=== PATIENT | female | born 1930 | race Hispanic/Latino ===

== ENCOUNTER 2018-09-06 15:57 | Outpatient (CLI) | payer BC, MEDICARE | END 2018-09-06 15:58 | disposition home or self-care (01) | LOC: RAD 15:57 ==

== ENCOUNTER 2018-09-08 09:52 | Outpatient (CLI) | payer BC, MEDICARE | END 2018-09-08 09:53 | disposition home or self-care (01) | LOC: RAD 09:52 ==

== ENCOUNTER 2018-10-07 18:40 | Inpatient (IN) | payer BC, MEDICARE ==
[2018-10-07] MEDS ORDERED: Morphine 4 mg/ml ISec IVP STA ×2 (19:51→23:41)
--- NOTE | 2018-10-07 20:21 | ED PDOC ---
Arrival/HPI - General Chief Complaint: Weakness/Neurological Deficit Time Seen by Provider: 10/07/18 19:36 Historian: Patient - History of Present Illness Narrative History of Present Illness (Text): 10/07/18 20:19 Dorothy Sharp is an 88 year old female, whose past medical history includes breast cancer, diabetes, spinal stenosis, and vertebral disc disease, who presents to the Emergency department complaining of right-sided leg pain extending from her right buttock down the right side of her leg. Patient states she is under the care of a pain specialist for this and recently had an epidural performed. Patient states she ran out of her Oxycodone, which only helped minimally. Patient states " I live alone, I can not go home, I can't walk because of the pain." Patient also complaining of bilateral leg swelling, which she states is chronic. Patient states she had dopplers of the lower extremities performed, which were negative. Patient denies any leg weakness, changes in bowel/urinary habits, fever, chills, chest pain, headache, dizziness, or any other complaints. Symptom Onset: Gradual Symptom Course: Unchanged Activities at Onset: Light Context: Home Past Medical History - Provider Review Nursing Documentation Reviewed: Yes - Infectious Disease Hx of Infectious Diseases: None - Tetanus Immunization Tetanus Immunization: Unknown - Cardiac Hx Pacemaker: No - Pulmonary Hx Chronic Obstructive Pulmonary Disease (COPD): Yes - Neurological Hx Paralysis: No - Endocrine/Metabolic Hx Endocrine Disorders: Yes Hx Diabetes Mellitus Type 1: Yes - Hematological/Oncological Hx Blood Transfusions: No - Musculoskeletal/Rheumatological Hx Musculoskeletal Disorders: Yes - Psychiatric Hx Emotional Abuse: No Hx Physical Abuse: No Hx Substance Use: No - Surgical History Hx Cholecystectomy: Yes Hx Mastectomy: Yes (partial) - Anesthesia Hx Anesthesia Reactions: No Hx Malignant Hyperthermia: No - Suicidal Assessment Feels Threatened In Home Enviroment: No Family/Social History - Physician Review Nursing Documentation Reviewed: Yes Family/Social History: Unknown Family HX Smoking Status: Never Smoked Hx Alcohol Use: No Hx Substance Use: No Hx Substance Use Treatment: No Allergies/Home Meds Allergies/Adverse Reactions: Allergies regadenoson Adverse Reaction (Intermediate, Verified 06/17/17 12:02) SHORTNESS OF BREATH DURING STRESS TEST/IMPROVED WITH AMINOPHYLINE Home Medications: Home Meds Medication Instructions Recorded Confirmed Arformoterol Tartrate [Brovana] 1 inh INH BID PRN 05/29/13 10/07/18 Acetaminophen [Tylenol (Renal)] 650 mg PO Q6 PRN 06/09/17 10/07/18 Wilbur-3 Fatty Acids/Fish Oil [Fish 2 cap PO DAILY 06/09/17 10/07/18 Oil 1,000 mg Capsule] metFORMIN [glucOPHAGE] 500 mg PO BID 06/09/17 10/07/18 traMADol [Ultram] 50 mg PO TID PRN 06/09/17 10/07/18 Rosuvastatin Calcium [Crestor] 5 mg PO DAILY 06/17/17 10/07/18 Acetaminophen [Tylenol 325mg tab] 650 mg PO Q4H PRN 07/21/18 10/07/18 Glimepiride [Amaryl] 1 mg PO DAILY 07/21/18 10/07/18 Tiotropium [place] Inhaler 1 inhaler INH DAILY PRN 07/21/18 10/07/18 [Spiriva Inhalation Handihaler Device] oxyCODONE [oxyCODONE Immediate 5 mg PO DAILY 10/07/18 10/07/18 Release Tab] Review of Systems - Physician Review All systems were reviewed & negative as marked: Yes - Review of Systems Constitutional: Normal. absent: Fevers Eyes: Normal ENT: Normal Respiratory: Normal. absent: SOB Cardiovascular: Normal. absent: Chest Pain, Calf Pain Gastrointestinal: Normal. absent: Abdominal Pain, Diarrhea, Nausea, Vomiting Genitourinary Female: Normal. absent: Dysuria, Frequency, Hematuria, Urine Output Changes Musculoskeletal: Back Pain, Myalgias, Other (+bilateral lower extremity swelling) Skin: Normal. absent: Rash Neurological: Normal. absent: Headache, Dizziness Endocrine: Normal Hemo/Lymphatic: Normal Psychiatric: Normal Physical Exam Vital Signs Reviewed: Yes Vital Signs Temp Pulse Resp BP Pulse Ox 10/07/18 18:54 98.2 F 94 H 16 138/71 97 Temperature: Afebrile Blood Pressure: Normal Pulse: Regular Respiratory Rate: Normal Appearance: Positive for: Well-Appearing, Non-Toxic, Comfortable Pain Distress: None Mental Status: Positive for: Alert and Oriented X 3 Finger Stick Blood Glucose: 93 - Systems Exam Head: Present: Atraumatic, Normocephalic Pupils: Present: PERRL Extroacular Muscles: Present: EOMI Conjunctiva: Present: Normal Mouth: Present: Moist Mucous Membranes Neck: Present: Normal Range of Motion. No: Meningeal Signs, Paraspinal Tenderness Respiratory/Chest: Present: Clear to Auscultation, Good Air Exchange. No: Respiratory Distress, Accessory Muscle Use Cardiovascular: Present: Regular Rate and Rhythm, Normal S1, S2. No: Murmurs Abdomen: No: Tenderness, Distention, Peritoneal Signs Back: Present: Pain with Leg Raise (Discomfort with bilateral straight leg raising) Upper Extremity: Present: Normal Inspection. No: Cyanosis, Edema Lower Extremity: Present: Edema (2+ pitting edema bilaterally), NORMAL PULSES, Normal ROM, Neurovascularly Intact, Capillary Refill < 2 s, Other (DTRs intact). No: CALF TENDERNESS, Cyanosis, Jefferson's Sign, Erythema, Deformity, Temperature Abnormalties Neurological: Present: GCS=15, CN II-XII Intact, Speech Normal, Motor Func Grossly Intact (Full ROM x4 extremities), Normal Sensory Function, Normal Cerebellar Funct, Norm Deep Tendon Reflexes (DTRs intact), Memory Normal Skin: Present: Warm, Dry, Normal Color. No: Rashes Psychiatric: Present: Alert, Oriented x 3, Normal Insight, Normal Concentration Medical Decision Making ED Course and Treatment: 10/07/18 20:19 Impression: 88 year old female complaining of right-sided leg pain radiating down leg and bilateral lower extremity swelling. Plan: -- US Duplex Lower Extremities -- EKG -- Chest X-ray -- Labs, BNP -- Morphine -- Reassess and disposition Prior Visits: Notes and results from previous visits were reviewed. Progress Notes: Reviewed EKG, NSR at 83 bpm. Inferior infarct. No acute changes. 10/07/18 23:08 US Duplex Lower Extremities preliminary read negative for DVT. 10/07/18 23:34 Chest X-ray reviewed, shows no acute processes. 10/07/18 23:[address] Vasques, who is aware and agrees with plan. Accepts pt in to her service. Pt will go [facility] observation for sciatica and intractable pain. Requests Dr. Bowers, pain specialist, on consult. - Lab Interpretations I have reviewed the lab results: Yes - RAD Interpretation Radiology Orders: 10/07/18 19:51 CHEST PORTABLE [RAD] Stat 10/07/18 20:03 DUPLEX LOWER EXTRM VEIN BILAT [US] Stat Tow Truck Driver: ED Physician - EKG Interpretation Interpreted by ED Physician: Yes Type: 12 lead EKG - Medication Orders Current Medication Orders: Discontinued Medications Morphine Sulfate (Morphine) 4 mg IVP STAT STA Stop: 10/07/18 19:52 Last Admin: 10/07/18 20:16 Dose: 4 mg MAR Pain Assessment Document 10/07/18 20:16 KV (Rec: 10/07/18 20:16 KV [id number]) Pain Reassessment Is this a pain reassessment? No IVP Administration Document 10/07/18 20:16 KV (Rec: 10/07/18 20:16 KV [id number]) Charges for Administration # of IVP Administrations 1 - Scribe Statement The provider has reviewed the documentation as recorded by the Reji Jansen Provider Scribe Attestation: All medical record entries made by the Scribe were at my direction and persona lly dictated by me. I have reviewed the chart and agree that the record accurately reflects my personal performance of the history, physical exam, medical decision making, and the department course for this patient. I have also personally directed, reviewed, and agree with the discharge instructions and disposition. Disposition/Present on Arrival - Present on Arrival Any Indicators Present on Arrival: No History of DVT/PE: No History of Uncontrolled Diabetes: No Urinary Catheter: No History of Decub. Ulcer: No History Surgical Site Infection Following: None - Disposition Have Diagnosis and Disposition been Completed?: Yes Diagnosis: Sciatica, Intractable pain, Leg edema Disposition: HOSPITALIZED Disposition Time: 23:49 Patient Plan: Observation Patient Problems: Current Active Problems Problem Status Onset Intractable pain Acute Leg edema Acute Sciatica Acute Condition: STABLE Referrals: Tam Vasques MD [Primary Care Provider] - Follow up with primary Forms: [employer] ([place])
[2018-10-07 20:24] LABS: ALB/GLOB RATIO 1.2 (1.1-1.8); ALBUMIN 4.4 g/dL (3.0-4.8); ALT/SGPT 29 U/L (7-56); AST/SGOT 37 U/L (14-36); BLOOD UREA NITROGEN 19 mg/dL (7-21); CALCIUM 9.7 mg/dL (8.4-10.5); GFR NON-AFRICAN AMERICAN 59
[2018-10-07 20:30] LABS: MEAN CELL VOLUME 90.7 fl (80.0-105.0); MEAN CORPUSCULAR HEMOGLOBIN 30.3 pg (25.0-35.0); MEAN CORPUSCULAR HGB CONC 33.4 g/dl (31.0-37.0); MEAN PLATELET VOLUME 9.2 fl (7.0-11.0); RBC 4.29 10^6/uL (3.5-6.1); RED CELL DISTRIBUTION WIDTH 14.8 % (11.5-14.5); WHITE BLOOD COUNT 9.3 10^3/uL (4.5-11.0)
[2018-10-07 20:33] LABS: B-TYPE NATRIURETIC PEPTIDE 173 pg/mL (0-450)
[2018-10-08] MEDS: Morphine 4 mg/ml ISec IVP PRN ×2 (03:28→11:24)
--- NOTE | 2018-10-08 09:34 | RAD ---
HISTORY: medical clearance COMPARISON: Chest x-ray performed 09/06/18 TECHNIQUE: Chest, one view. FINDINGS: LUNGS: Mild left basilar atelectasis. Please note that chest x-ray has limited sensitivity for the detection of pulmonary masses. PLEURA: No significant pleural effusion identified. No definite pneumothorax . CARDIOVASCULAR: Borderline cardiomegaly. Atherosclerotic calcifications of an ectatic aorta. OSSEOUS STRUCTURES: Degenerative changes of the spine. VISUALIZED UPPER ABDOMEN: Unremarkable. OTHER FINDINGS: Left axillary clips. Postsurgical changes left breast. IMPRESSION: Mild left basilar atelectasis. Borderline cardiomegaly. Postoperative changes within the left axilla and left breast.
[2018-10-08] MEDS ORDERED: Tiotropium 18 mcg Cap For Inhalation INH PRN (09:54)
[2018-10-08] MEDS ORDERED: oxyCODONE 5 mg Immediate Release Tab PO SCH (10:00)
[2018-10-08] MEDS: Tiotropium 18 mcg Cap For Inhalation INH SCH (12:00)
[2018-10-08] MEDS: MethylPREDNISolone 40 mg Vial IV SCH ×2 (12:03→21:33)
[2018-10-08] MEDS: oxyCODONE 5 mg Immediate Release Tab PO PRN ×2 (16:46→22:40)
[2018-10-08] MEDS: Arformoterol 15 mcg/2 ml Inh Sol IH SCH (20:15)
--- NOTE | 2018-10-08 21:12 | HP ---
DATE OF EXAM: 10/08/2018 HISTORY OF PRESENT ILLNESS: The patient is 88 years old who states that she was having chronic back pain. She was following with pain management doctor, who gave her an epidural on 09/22/2018. The following day, she had an intractable pain in her right leg, she was unable to walk. She called him back and he put her back on Celebrex and oxycodone. She states she has been holding onto the pain, but yesterday pain got so worse she could not even stand up or walk to the bathroom, she got nervous because of right leg weakness, so she called ambulance and she was brought to emergency room for further evaluation. PAST MEDICAL HISTORY: The patient has past medical history significant for; 1. Hypertension. 2. Hyperlipidemia. 3. History of COPD. 4. She had stress test done and had a cardiac catheterization done. 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 5. History of CA breast, status post lumpectomy. 6. Status post cholecystectomy. 7. Non-insulin dependent diabetes. ALLERGIES SHE IS ALLERGIC TO REGADENOSON. HOME MEDICATIONS: She is on tramadol, oxycodone, metformin, Spiriva, Crestor, glimepiride, Colace, aspirin 81 daily, Brovana. SOCIAL HISTORY: She used to be a heavy smoker in the past. Socially used to drink. PHYSICAL EXAMINATION GENERAL: She is anxious, awake, alert, oriented, able to communicate. VITAL SIGNS: She is afebrile, pulse 74, respiration 18, blood pressure 124/65. CARDIOPULMONARY: Heart is S1, S2 audible. LUNGS: Bilateral diffusely decreased breath sounds. No active rhonchi or crackle. ABDOMEN: Soft, obese, nontender. No rebound. No guarding. NEUROLOGIC: She is awake, alert, oriented, able to communicate. LABORATORY DATA: WBC is 9.3, hemoglobin 13, hematocrit 38, platelet 201. Chemistry, sodium 137, potassium 3.8, chloride 96, CO2 of 30, BUN 19, creatinine 0.9, blood sugar of 93. She had x-ray chest that is unremarkable. Mild left basilar atelectasis and status post left breast lumpectomy. ASSESSMENT 1. Intractable back pain, difficulty walking with right leg numbness status post epidural 2 weeks ago. 2. Hypertension. 3. Hyperlipidemia. 4. Coronary artery disease. 5. Chronic obstructive pulmonary disease. PLAN: We will continue the patient on her usual medication. Start her on anti-inflammatory. Monitor her blood sugar. Continue her on analgesic. Physical therapy has been evaluated. Laxative as needed. We will follow up this patient in a.m. Tam Vasques MD
--- NOTE | 2018-10-09 00:50 | CP.PCM.PN ---
Subjective - Date & Time of Evaluation Date of Evaluation: 10/09/18 Time of Evaluation: 00:42 - Subjective Subjective: S: It was requested by medical sociologist to co-sign order for Benadryl. It was prescribed for sleep. Before it can be given , patient fell asleep. I went to see patient, she is asleep. Medical record was reviewed. O: VSS. Not in acute distress. LUNGS: Normal breathing pattern. A:Insomnia. P: Instructed nurse to give Benadryl if she wakes up and asks for a sleeping pill. Objective - Vital Signs/Intake and Output Vital Signs (last 24 hours): Temp Pulse Resp BP Pulse Ox 98.6 F 78 20 115/58 L 96 10/08/18 22:00 10/08/18 22:00 10/08/18 22:00 10/08/18 22:00 10/08/18 22:00 Intake and Output: 10/08/18 10/09/18 18:59 06:59 Intake Total 400 540 Balance 400 540 - Medications Medications: Current Medications Acetaminophen (Tylenol 325mg Tab) 650 mg PO Q6 PRN PRN Reason: Pain, moderate (4-7) Arformoterol Tartrate (Brovana) 7.5 mcg IH BIDRESP ANIL Aspirin (Ecotrin) 81 mg PO DAILY [facility] Last Admin: 10/08/18 11:24 Dose: 81 mg Atorvastatin Calcium (Lipitor) 20 mg PO DIN [facility] Last Admin: 10/08/18 16:46 Dose: 20 mg Docusate Sodium (Colace) 100 mg PO BID [facility] Last Admin: 10/08/18 11:23 Dose: 100 mg Glimepiride (Amaryl) 1 mg PO ACBD [facility] Last Admin: 10/08/18 16:50 Dose: 1 mg Meloxicam (Mobic) 15 mg PO DAILY [facility] Last Admin: 10/08/18 11:23 Dose: 15 mg Metformin HCl (Glucophage) 500 mg PO BID [facility] Last Admin: 10/08/18 17:59 Dose: 500 mg Methylprednisolone (Solu-Medrol) 30 mg IV Q12 [facility] Last Admin: 10/08/18 21:33 Dose: 30 mg Oxycodone HCl (Oxycodone Immediate Release Tab) 5 mg PO Q6H PRN PRN Reason: Pain, moderate (4-7) Last Admin: 10/08/18 22:40 Dose: 5 mg Tiotropium [place] (Spiriva) 18 mcg INH DAILY [facility] Last Admin: 10/08/18 12:00 Dose: 18 mcg - Labs Labs: 10/07/18 20:00 10/07/18 20:00
--- NOTE | 2018-10-09 07:48 | CARD ---
APPROVED REPORT Date of service: 10/07/2018 EKG Measurement Heart [id number] <Conclusion> Normal sinus rhythm Possible Inferior infarct, age undetermined Abnormal ECG
[2018-10-09] MEDS: Arformoterol 15 mcg/2 ml Inh Sol IH SCH ×2 (08:00→20:37)
[2018-10-09] MEDS: MethylPREDNISolone 40 mg Vial IV SCH ×2 (10:35→21:45)
[2018-10-09] MEDS: Tiotropium 18 mcg Cap For Inhalation INH SCH ×2 (10:35→10:46)
[2018-10-09] MEDS: oxyCODONE 5 mg Immediate Release Tab PO PRN ×2 (10:46→20:21)
--- NOTE | 2018-10-09 15:09 | US ---
HISTORY: Leg pain and swelling. Evaluate for DVT PHYSICIAN(S): Serafin Hebert MD. TECHNIQUE: Duplex sonography and color-flow Doppler with graded compression were used to evaluate the deep venous systems of both lower extremities. FINDINGS: The visualized deep venous systems of both lower extremities are sonographically normal and compressible. Normal wave forms and augmentation are seen. There is no sonographic evidence for deep venous thrombosis in the visualized segments of both lower extremities. IMPRESSION: No sonographic evidence for deep venous thrombosis in the visualized segments of both lower extremities.
--- NOTE | 2018-10-09 20:13 | PN ---
DATE: 10/09/2018 SUBJECTIVE: The patient is a 88-year-old, seen and examined. Still has right hip and right lower leg pain radiating towards the right thigh. She has difficulty walking and lives by herself and very nervous to go home. She states she has subtle difference in her pain, some improvement on walking. PHYSICAL EXAMINATION: VITAL SIGNS: She is afebrile, pulse 76, respirations 20, and blood pressure 132/69. LUNGS: Bilateral fair airflow. No rhonchi or crackles. HEART: S1 and S2 audible. ABDOMEN: Soft and nontender. No rebound. No guarding. NEUROLOGIC: The patient is awake, alert, oriented, and able to communicate. Complain of right-sided lower back pain radiating towards thigh, making her unable to walk. LABORATORY DATA: Bilateral lower lobe atelectasis upon x-ray. ASSESSMENT: 1. Intractable abdominal pain. 2. Difficulty walking and high risk for fall. 3. Status post multiple epidural. 4. Coronary artery disease. 5. History of hypertension. 6. Hyperlipidemia. 7. Chronic obstructive pulmonary disease. PLAN: I will increase her Solu-Medrol to 40 every 12 hours. I will order for x-ray of the hip. Increase the dose of Solu-Medrol. Order for hip and the pelvic x-rays. Continue analgesic. We will follow up the patient in a.m. Tam Vasques MD
[2018-10-09 22:40] VITALS: RESP 18
[2018-10-10] MEDS: Arformoterol 15 mcg/2 ml Inh Sol IH SCH (07:55)
[2018-10-10 07:57] VITALS: BP 134/74; PULSE 62; TEMP 98.5; O2SAT 97
--- NOTE | 2018-10-10 09:14 | RAD ---
PROCEDURE: Radiographs of the pelvis and bilateral hips HISTORY: rt hip pain /difficulty walking COMPARISON: None. FINDINGS: BONES: Pelvis: Unremarkable. Right hip:Unremarkable. Left hip:Unremarkable. JOINTS: Right hip: Unremarkable. Left hip: Unremarkable. Sacroiliac Joints: Unremarkable. Pubic symphysis: Unremarkable. SOFT TISSUES: Normal. OTHER FINDINGS: None. IMPRESSION: Unremarkable radiographs of the hips and pelvis.
[2018-10-10] MEDS: MethylPREDNISolone 40 mg Vial IV SCH (09:56)
[2018-10-10] MEDS: Tiotropium 18 mcg Cap For Inhalation INH SCH (10:01)
[2018-10-10] MEDS: oxyCODONE 5 mg Immediate Release Tab PO PRN (10:45)
--- NOTE | 2018-10-11 00:13 | DS ---
HISTORY OF PRESENT ILLNESS: The patient is an 88-year-old who came to emergency room with intractable back pain. She states she was found unstable, she could not even standup. She was unable to take even few steps. She states she has been struggling with her back pain and difficulty walking. She has been followed by pain management, but she lives alone. She got scared she is going to fall, so she called ambulance and she was brought to emergency room. The patient was started on IV steroids. She was given narcotics. She was given antiinflammatory with minimal relief. She was evaluated by physical therapist who recommended for rehab. The patient had multiple epidural as outpatient with minimal relief. PHYSICAL EXAMINATION: GENERAL: Today; she is awake, alert, oriented, and able to communicate. VITAL SIGNS: She is afebrile, pulse 62, respirations 18, and blood pressure 134/74. LUNGS: Bilateral fair airflow. No rhonchi or crackles. HEART: S1 and S2 audible. ABDOMEN: Soft, obese, and nontender. No rebound. No guarding. NEUROLOGIC: The patient is awake, alert, oriented, and communicative. LABORATORY DATA: She had x-ray of the thoracic and lumbar spine done shows degenerative disk disease. ASSESSMENT: 1. Severe lumbosacral radiculopathy, difficultly walking, unstable gait, and high risk for fall. 2. Noninsulin-dependent diabetes. 3. Hypertension. 4. Coronary artery disease, status post angioplasty. PLAN: The patient is being discharged home. She was given prescription for Celebrex 200 daily and tramadol 3 times a day. She has oxycodone from Dr. Ellison already. She will follow up with Dr. Ellison as outpatient. She will continue her usual medications that include metformin 500 twice a day, Spiriva, Crestor, glimepiride, Colace 100 twice a day, aspirin 81 daily, and Brovana. She is on tramadol for moderate pain. She is on prednisone 20 mg twice a day for 3 days and then daily for 5 days. She will follow up with her pain management and she will get physical therapy at home. Tam Vasques MD [facility] # [id number]
== END 2018-10-10 14:27 | disposition home health service (06) | DRG 552 ==
LOC: ED 18:40 → ERH 23:52 → 5RNO 10-08 02:48 → OBSVTOIN 10-08 16:00
PROVIDERS: ADMIT Internal Medicine; ATTEND Internal Medicine
DX: M54.17 Radiculopathy, lumbosacral region (principal); E11.9 Type 2 diabetes mellitus without complications; I25.10 Atherosclerotic heart disease of native coronary artery without angina pectoris; I10 Essential (primary) hypertension; J44.9 Chronic obstructive pulmonary disease, unspecified; E78.5 Hyperlipidemia, unspecified; Z91.81 History of falling; G89.29 Other chronic pain; G47.00 Insomnia, unspecified; Z85.3 Personal history of malignant neoplasm of breast; Z98.61 Coronary angioplasty status; Z87.891 Personal history of nicotine dependence